=== PATIENT | male | born 2000 | race African-American/Black ===

== ENCOUNTER 2024-10-28 10:41 | Emergency (ER) | payer OTHER ==
[~2024-10-28] VITALS: Ht 185.4 cm; Wt 127.3 kg
[2024-10-28 10:43] VITALS: TEMP 97.9
[2024-10-28 12:28] LABS: BASO # 0.0 10^3/uL (0.0-0.2); BASO % 0.6 % (0.0-1.0); EOS # 0.1 10^3/uL (0.0-0.5); EOS % 2.0 % (0.0-3.0); LYMPH # 2.3 10^3/uL (1.5-5.0); LYMPH % 46.0 % (24.0-44.0); MONO # 0.5 10^3/uL (0.0-0.8); MONO % 10.2 % (2.0-8.0); NEUTROPHILS # 2.0 10^3/uL (1.5-8.5); NEUTROPHILS % 41.0 % (36.0-66.0); PLATELET COUNT, AUTOMATED 259 10^3/uL (150-450)
[2024-10-28 12:44] LABS: INR 0.9
[2024-10-28 12:59] LABS: ALT/SGPT 64.0 U/L (7.0-40); AST/SGOT 33.0 U/L (<34); CALCIUM LEVEL 8.8 MG/DL (8.5-10.1); CARBON DIOXIDE LEVEL 29.0 MMOL/L (20-31); CHLORIDE LEVEL 102.0 MMOL/L (98-107); CREATININE FOR GFR 1.24 MG/DL (0.70-1.30); GLOMERULAR FILTRATION RATE 82.2 (>60); POTASSIUM SERUM 4.4 MMOL/L (3.5-5.1); SODIUM LEVEL 140.0 MMOL/L (136-145)
[2024-10-28 14:59] VITALS: BP 144/92; O2SAT 98
== END 2024-10-28 16:04 | disposition home or self-care (01) ==
LOC: M ED 10:41
DX: K62.5 Hemorrhage of anus and rectum (principal)